=== PATIENT | male | born 1970 | race Caucasian/White ===

== ENCOUNTER → 2019-04-07 | Outpatient (REF) ==
--- NOTE | 2019-04-08 03:48 | REP ---
Clinical: Autopsy Technique: Portable supine view of the cervical spine. Findings: Examination is essentially nondiagnostic. Alignment in the frontal projection is appreciated. Electronically Signed by Buddy Gaines MD 04/08/2019 03:39 A
--- NOTE | 2019-04-08 03:49 | REP ---
Clinical: Autopsy Technique: Portable supine AP and cross-table lateral views of the skull. Findings: No obvious acute fracture or dislocation. Impression: Unremarkable portable skull radiographs. Electronically Signed by Buddy Gaines MD 04/08/2019 03:40 A
--- NOTE | 2019-04-08 03:59 | REP ---
Clinical: Autopsy Technique: Portable supine view of the chest. Findings: No obvious consolidation. No obvious subcutaneous emphysema. No obvious acute fracture. Mediastinum and cardiac silhouette are normal. Impression: No obvious abnormality. Electronically Signed by Buddy Gaines MD 04/08/2019 03:51 A
--- NOTE | 2019-04-08 04:05 | REP ---
Clinical: Autopsy Technique: Portable supine view of the pelvis. 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 Injury to the left hip cannot be excluded. Overlying subcutaneous emphysema is appreciated. Small fragments of foreign body material noted. 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 Small scattered foreign body material. Electronically Signed by Buddy Gaines MD 04/08/2019 03:56 A
== END ==
LOC: M LAB 08:46